=== PATIENT | female | born 1995 | race Two or more races ===

== ENCOUNTER 2017-09-11 23:23 | Inpatient (IN) | payer BC ==
[~2017-09-11] VITALS: Ht 160 cm; Wt 61.2 kg
--- NOTE | 2017-09-12 00:36 | NUR ---
PT [facility]IB [facility] TO ER BED 7 C/O MIDABD PAIN X TODAY RADIATES THROUGHOUT ABD, NAUSEA NO VOMITING, HX OVARIAN CYST, TOOK NEXIUM X 2230 TODAY W/ NO RELIEF. PT AOX3 RR EVEN AND UNLABORED. NO SOB NOTED. NAD NOTED. NO NVD AT THIS TIME. PT GOWNED AND PLACED ON MONITOR. URINE COLLECTED. SENT TO LAB
[2017-09-12 01:05] LABS: BASOPHILS # (AUTO) 0.1 /CMM (0.0-0.2); BASOPHILS % (AUTO) 0.4 % (0.0-2.0); EOSINOPHILS # (AUTO) 0.1 /CMM (0.0-0.7); EOSINOPHILS % (AUTO) 0.8 % (0.0-6.0); HEMATOCRIT 40 % (33-45); HEMOGLOBIN 13.7 g/dL (11.5-14.8); LYMPHOCYTES # (AUTO) 3.1 /CMM (0.8-4.8); LYMPHOCYTES % (AUTO) 20.3 % (20.0-44.0); MEAN CORPUSCULAR HEMOGLOBIN 29 PG (26.0-33.0); MEAN CORPUSCULAR HGB CONC 34 g/dl (31.0-36.0); MEAN CORPUSCULAR VOLUME 84 fL (82-100); MONOCYTES % (AUTO) 6.3 % (2.0-12.0); NEUTROPHILS # (AUTO) 10.9 /CMM (1.8-8.9); NEUTROPHILS % (AUTO) 72.2 % (43.0-81.0); PLATELET COUNT (AUTO) 239 /CMM (150-450); RDW COEFFICIENT OF VARIATION 11.3 (11.5-15.0); RED BLOOD CELL COUNT(AUTO) 4.79 MIL/uL (4.0-5.2); WHITE BLOOD COUNT (AUTO) 15.1 K/uL (4.3-11.0)
[2017-09-12 01:13] LABS: BILIRUBIN,URINE NEGATIVE (NEGATIVE); BLOOD, URINE NEGATIVE Ery/uL (NEGATIVE); COLOR,URINE YELLOW (YELLOW); KETONES,URINE NEGATIVE (NEGATIVE); LEUKOCYTE ESTERASE ,URINE NEGATIVE (NEGATIVE); NITRITE, URINE NEGATIVE (NEGATIVE); PROTEIN,URINE NEGATIVE (NEGATIVE); UGLUCOSE NEGATIVE (NEGATIVE); UROBILINOGEN,URINE 0.2 EU/dL (0.2)
[2017-09-12 01:14] LABS: APPEARANCE,URINE CLEAR (CLEAR)
[2017-09-12] MEDS ORDERED: ONDANSETRON HCL/PF 4 MG/2 ML VIAL ONE ×2 (01:17→03:52)
[2017-09-12] MEDS ORDERED: MORPHINE SULFATE INJ 4 MG/ML DISP.SYRIN ONE ×2 (01:18→03:52)
[2017-09-12 01:22] LABS: CALCIUM, SERUM 8.7 mg/dL (8.5-10.1); CREATININE 0.7 mg/dL (0.6-1.3); POTASSIUM 3.5 mmol/L (3.5-5.1)
[2017-09-12 01:26] LABS: INR 0.93 (0.87-1.13); PROTHROMBIN TIME 9.7 SECS (9.5-12.7)
--- NOTE | 2017-09-12 01:26 | NUR ---
RIVERA AT BEDSIDE
[2017-09-12] MEDS ORDERED: ONDANSETRON HCL/PF 4 MG/2 ML VIAL IV ONE (01:30)
[2017-09-12] MEDS ORDERED: MORPHINE SULFATE INJ 2 MG/ML DISP.SYRIN IV ONE (01:30)
[2017-09-12 01:34] LABS: ALBUMIN 3.6 g/dL (3.4-5.0); BILIRUBIN,DIRECT 0.1 mg/dL (0.0-0.2); BILIRUBIN,TOTAL 0.3 mg/dL (0.2-1.0); TOTAL PROTEIN, SERUM 7.3 g/dL (6.4-8.2)
--- NOTE | 2017-09-12 02:01 | NUR ---
PT TO CT.
--- NOTE | 2017-09-12 02:09 | NUR ---
PT RETURNED FROM CT
--- NOTE | 2017-09-12 03:43 | NUR ---
REPORT GIVEN TO SULEMAN MULLER FOR DEMETRI
[2017-09-12] MEDS ORDERED: ESOM40CA PO (03:45)
[2017-09-12] MEDS ORDERED: ALBU8.5H8 INH (03:45)
[2017-09-12] MEDS ORDERED: ONDANSETRON HCL/PF 4 MG/2 ML VIAL IV PRN (04:00)
[2017-09-12] MEDS ORDERED: MORPHINE SULFATE INJ 4 MG/ML DISP.SYRIN IV PRN (04:00)
--- NOTE | 2017-09-12 04:04 | NUR ---
PT TRANSFERRED TO BED 209 VIA WC
[2017-09-12 04:30] VITALS: BP 87/54
[2017-09-12 04:50] VITALS: BP 95/60
--- NOTE | 2017-09-12 05:24 | NUR ---
ADMITTED THIS 22 YEARS OLD FEMALE FROM [facility] PATIENT GOT ADMITTED FOR APPENDICITIS BACK PAIN, NAUSEA VOMIT. SALINE LOCK TO RIGHT AC. SKIN IS INTACT PATIENT IS ALERT X 4 AMBULATORY COMPLAIN OF NAUSEA THIS MORNING NPO SINCE THIS MORNING DR. CHAVEZ NOTIFY REGARDING PATIENT ADMISSION WILL CONTINUES TO MONITOR THE PATIENT FOR SAFETY AND FALL.
[2017-09-12] MEDS ORDERED: ONDANSETRON HCL/PF 4 MG/2 ML VIAL IVP PRN (06:00)
[2017-09-12] MEDS ORDERED: ACETAMINOPHEN 325 MG TABLET PO PRN (06:00)
[2017-09-12] MEDS ORDERED: MORPHINE SULFATE INJ 2 MG/ML DISP.SYRIN IV PRN (06:00)
[2017-09-12] MEDS ORDERED: MAG HYDROX/AL HYDROX/SIMETH 30 ML UDC PO PRN (06:00)
[2017-09-12] MEDS ORDERED: Z GUARD REMEDY 2 OZ OINT TP PRN (06:00)
[2017-09-12] MEDS ORDERED: CEFTRIAXONE 1 G in IV D5W 50 ML IV SCH (06:00)
[2017-09-12] MEDS ORDERED: IV NS 0.9% 1,000 ML BAG IV PRN (06:00)
[2017-09-12] MEDS ORDERED: MAGNESIUM HYDROXIDE 30 ML UDC PO PRN (06:00)
[2017-09-12] MEDS ORDERED: ZOLPIDEM TARTRATE 5 MG TABLET PO PRN (06:00)
[2017-09-12] MEDS ORDERED: CEFTRIAXONE 1 G VIAL ONE (06:18)
[2017-09-12] MEDS: IV NS 0.9% 1,000 ML IV PRN (06:28)
--- NOTE | 2017-09-12 07:30 | NUR ---
MS/RN OPENING NOTE RECEIVED PATIENT IN BED. ALERT AND ORIENTED X4. RESPIRATION REGULAR AND UNLABORED. DENIES SOB, PAIN AT THIS TIME. NO C/O NAUSEA OR VOMITING. IN NO APPARENT DISTRESS. SIDE RAIL UP X2. BED LOW AND LOCKED. CALL LIGHT WITHIN REACH. WILL CONTINUE TO MONITOR.
[2017-09-12 08:00] VITALS: BP 99/59
[2017-09-12] MEDS: PANTOPRAZOLE 40 MG VIAL IV SCH (10:24)
[2017-09-12] MEDS ORDERED: KETOROLAC TROMETHAMINE INJ 30 MG/ML VIAL IV ONE (12:30)
[2017-09-12] MEDS ORDERED: PIPERACILLIN /TAZOBACTAM 4.5 G in IV D5W 50 ML IV SCH (13:30)
[2017-09-12] MEDS ORDERED: ANESTHESIA TRAY IN PYXIS 1 EA TRAY MC ONE (14:48)
[2017-09-12] MEDS ORDERED: LIDOCAINE 0.5% HCL 50 ML VIAL ONE (14:49)
[2017-09-12] MEDS ORDERED: BUPIVACAINE 0.25% 75 MG/30 ML VIAL ONE ×2 (14:49→15:19)
--- NOTE | 2017-09-12 15:00 | NUR ---
MS/RN GOING TO SURGERY PATIENT ALERT AND ORIENTED X4. BREATHING REGULAR AND UNLABORED. DENIES SOB, PAIN. IN NO APPARENT DISTRESS. CONSENTS SIGNED. PATIENT IN STABLE CONDITION.
[2017-09-12] MEDS ORDERED: FENTANYL PF 100MCG/2ML AMPUL ONE ×2 (15:05→16:24)
[2017-09-12] MEDS ORDERED: ROCURONIUM BROMIDE 50 MG/5 ML ONE (15:06)
[2017-09-12] MEDS ORDERED: MIDAZOLAM HCL 2 MG/2ML VIAL ONE (15:06)
[2017-09-12 17:00] VITALS: BP 111/61
[2017-09-12] MEDS: KETOROLAC TROMETHAMINE INJ 30 MG/ML VIAL IV PRN ×2 (17:00→23:04)
--- NOTE | 2017-09-12 17:00 | NUR ---
MS/RN BACK FROM SURGERY PATIENT ALERT AND ORIENTED X4. NOTED TO BE SLEEPY. RESPIRATION REGULAR AND UNLABORED. VITALS SIGNS WITHIN NORMAL RANGE. BP 111/61, P 82, R 17, T 98.0, T 98.2. OXYGEN SATURATION AT 97 IN ROOM AIR. IN NO APPARENT DISTRESS. HOB ELEVATED. BED LOW AND LOCKED. SIDE RAIL UP X2. CALL LIGHT WITHIN REACH. FAMILY MEMBER BY THE BEDSIDE. WILL CONTINUE TO MONITOR.
[2017-09-12] MEDS: ZOSYN IVPB 3.375 G in IV D5W 50ml IV SCH ×2 (18:03→23:39)
--- NOTE | 2017-09-12 18:10 | NUR ---
MS/RN CLOSING NOTE PATIENT ALERT AND ORIENTED X4. RESPIRATION REGULAR AND UNLABORED. DENIES SOB, DENIES PAIN AT THIS TIME. RAC G20 PATENT AND IV ATB INFUSING WELL WITH NO S/S INFILTRATION. HOB ELEVATED. ABLE TO FEED SELF. GOOD GAG REFLUX PRESENT. NO COUGH. SIDE RAIL UP X2. BED LOW AND LOCKED. CALL LIGHT WITHIN REACH. WILL ENDORSE TO [employer].
[2017-09-12 20:00] VITALS: BP 96/53
[2017-09-13] MEDS: IV NS 0.9% 1,000 ML IV PRN (01:42)
[2017-09-13] MEDS: KETOROLAC TROMETHAMINE INJ 30 MG/ML VIAL IV PRN ×2 (04:33→10:33)
[2017-09-13] MEDS: ZOSYN IVPB 3.375 G in IV D5W 50ml IV SCH ×2 (05:55→12:22)
--- NOTE | 2017-09-13 06:23 | NUR ---
MS RN NOTES AWAKE & RESPONSIVE. NOT IN ANY DISTRESS. NO SOB NOTED. DENIES ANY PAIN OR DISCOMFORT AT THIS TIME. MONITORED ACCORDINGLY. CALL LIGHT WITHIN REACH. BED IN LOWEST POSITION. SR UP X 2 FOR SAFETY. WILL ENDORSE TO NEXT SHIFT.
[2017-09-13 07:06] LABS: BASOPHILS % (AUTO) 0.1 % (0.0-2.0); HEMATOCRIT 34 % (33-45); HEMOGLOBIN 11.4 g/dL (11.5-14.8); LYMPHOCYTES # (AUTO) 2.1 /CMM (0.8-4.8); LYMPHOCYTES % (AUTO) 29.4 % (20.0-44.0); MEAN CORPUSCULAR HEMOGLOBIN 29 PG (26.0-33.0); MEAN CORPUSCULAR HGB CONC 34 g/dl (31.0-36.0); MEAN CORPUSCULAR VOLUME 85 fL (82-100); MONOCYTES # (AUTO) 0.6 /CMM (0.1-1.30); MONOCYTES % (AUTO) 9.1 % (2.0-12.0); NEUTROPHILS # (AUTO) 4.3 /CMM (1.8-8.9); NEUTROPHILS % (AUTO) 61.4 % (43.0-81.0); PLATELET COUNT (AUTO) 196 /CMM (150-450); RDW COEFFICIENT OF VARIATION 12.4 (11.5-15.0); RED BLOOD CELL COUNT(AUTO) 3.95 MIL/uL (4.0-5.2); WHITE BLOOD COUNT (AUTO) 7.1 K/uL (4.3-11.0)
[2017-09-13 07:17] LABS: INR 0.96 (0.87-1.13)
[2017-09-13 07:28] LABS: ALBUMIN 2.9 g/dL (3.4-5.0); BILIRUBIN,TOTAL 0.4 mg/dL (0.2-1.0); CALCIUM, SERUM 8.3 mg/dL (8.5-10.1); CREATININE 0.5 mg/dL (0.6-1.3); PHOSPHORUS 2.5 mg/dL (2.5-4.9); POTASSIUM 3.8 mmol/L (3.5-5.1); TOTAL PROTEIN, SERUM 6.3 g/dL (6.4-8.2)
--- NOTE | 2017-09-13 07:29 | NUR ---
MS/RN OPENING NOTE RECEIVED THE PATIENT IN BED AWAKE. ALERT AND ORIENTED X4. RESPIRATION REGULAR AND UNLABORED. DENIES SOB, DENIES PAIN AT THIS TIME. SURGERY SITES NOTED TO BE INTACT, NO S/S INFECTION AND NO BLEEDING. RAC G20 PATENT AND IV INFUSING WITH NO S/S INFILTRATION. BED LOW AND LOCKED. SIDE RAIL UP X2. CALL LIGHT WITHIN REACH. WILL CONTINUE TO MONITOR.
[2017-09-13 07:30] LABS: CREATINE KINASE MB 0.1 ng/mL (0-3.6); THYROID STIMULATING HORMONE 0.223 uIU/mL (0.358-3.74)
[2017-09-13 08:02] VITALS: BP 94/46
[2017-09-13] MEDS: PANTOPRAZOLE 40 MG VIAL IV SCH (08:43)
[2017-09-13] MEDS ORDERED: HYDROCODONE/APAP 5/325MG 1 EACH TABLET PO PRN (10:30)
--- NOTE | 2017-09-13 14:49 | NUR ---
MS/RN CLOSING NOTE PATIENT ALERT AND ORIENTED X4. DENIES PAIN, DENIES SOB AT THIS TIME. RESPIRATION REGULAR AND UNLABORED. PATIENT IN NO APPARENT DISTRESS. SURGERY SITES INTACT, NO BLEEDING AND NO S/S INFECTION NOTED. VITAL SIGNS WITHIN NORMAL RANGE. ANTIBIOTIC PRESCRIPTION WRITTEN BY DR PULLIAM SEND WITH THE PATIENT (COPY PLACED IN CHART), SURGEON INFORMATION PROVIDED AND ENDORSED MD TEACHINGS. PATIENT LEAVING THE FACILITY IN STABLE CONDITION.
== END 2017-09-13 15:00 | disposition home or self-care (01) | DRG 343 ==
LOC: ER 23:27 → MEDSG2 09-12 03:21
PROVIDERS: ADMIT Internal Medicine; ATTEND Internal Medicine
PROC: 0DTJ4ZZ Resection of Appendix, Percutaneous Endoscopic Approach (ICD-10-PCS; principal; 2017-09-12 15:48)
DX: K35.80 Unspecified acute appendicitis (principal); N28.1 Cyst of kidney, acquired; J45.909 Unspecified asthma, uncomplicated; N83.209 Unspecified ovarian cyst, unspecified side; K52.81 Eosinophilic gastritis or gastroenteritis; D72.829 Elevated white blood cell count, unspecified
CPT/HCPCS: 36415; 71045-TC; 76856-TC; 80048-TC; 80053-TC; 80061-TC; 80076-TC; 81000-TC; 82553-TC; 82746; 83540-TC; 83735-TC; 84100-TC; 84443-TC; 84702-TC; 84703-TC; 85025-TC; 85730-TC; 87040-TC; 87081-TC; 88304-TC; 88305-TC; 93307-TC; A4606; C9113; J0690; J0696; J1100; J1885; J2250; J2270; J2405; J2543; J2704; J2710; J3010; J3490; J7030; J7060; Z7610